=== PATIENT | male | born 1950 | race Caucasian/White ===

== ENCOUNTER 2017-12-18 08:08 | Emergency (ER) | payer MEDICARE ==
[~2017-12-18] VITALS: Ht 172.7 cm; Wt 81.7 kg
[2017-12-18] MEDS ORDERED: DIOVAN 80 MG TA80 M1 PO (08:24)
[2017-12-18 08:52] LABS: INFLUENZA A ANTIGEN None Detected (None Detect); INFLUENZA B ANTIGEN None Detected (None Detect)
[2017-12-18 09:59] VITALS: BP 124/76
== END 2017-12-18 09:59 | disposition home or self-care (01) ==
LOC: M.ERS 08:08
PROVIDERS: Personal Emergency Response Attendant
DX: B34.9 Viral infection, unspecified (principal); I10 Essential (primary) hypertension